=== PATIENT | male | born 1945 | race Caucasian/White ===

== ENCOUNTER 2021-05-18 14:45 | Inpatient (IN) | payer MEDICARE, OTHER ==
--- NOTE | 2021-05-18 16:59 | CR ---
[id number] RAD/RAD Chest PA or AP 1V EXAM: RAD Chest PA or AP 1V INDICATION: SHORT OF BREATH,HYPOXIA,COVID19. COMPARISON: None. DISCUSSION: Cardiomediastinal silhouette is normal in size and contour. Patchy pulmonary infiltrates bilaterally, right greater than left. No pneumothorax or pleural effusion. IMPRESSION: Patchy pulmonary infiltrates bilaterally, right greater than left. Findings are likely infectious/inflammatory in nature as can be seen with atypical/viral pneumonia. This is consistent with COVID pneumonia. Nathan Garzon DO 05/18/21 [id number] Thank you for allowing us to participate in the care of your patient.
[2021-05-18] MEDS ORDERED: REMDESIVIR 200 MG in Sodium Chloride 0.9% 250 ML IV ONE (17:00)
[2021-05-18 17:02] LABS: ANION GAP 17.6 mmol/L (5-15)
[2021-05-18] MEDS: dexAMETHasone 2 MG, dexAMETHasone 4 MG PO SCH ×2 (17:15)
[2021-05-18] MEDS ORDERED: Fluticasone Propionate Nasal Spray 9.9 ML BOTTLE NAS PRN (18:15)
[2021-05-18] MEDS ORDERED: Sodium Chloride 0.9% 1,000 ML IV SCH (18:15)
[2021-05-18] MEDS ORDERED: OLANZapine 10 MG Vial IM PRN (18:24)
[2021-05-18] MEDS ORDERED: Morphine 2 MG/ML SYRINGE IVPUSH PRN (18:24)
[2021-05-18] MEDS ORDERED: Non-Formulary Medication 1 Each (Metoprolol Tartrate 100 MG Tablet) PO SCH (20:00)
[2021-05-18] MEDS: Sodium Chloride 0.9% 1,000 ML IV SCH (20:25)
[2021-05-18] MEDS: Acetaminophen 325 MG Tab PO PRN (21:26)
--- NOTE | 2021-05-18 23:55 | HP ---
An admission history and physical to the acute care floor at [facility]. CHIEF COMPLAINT: 1. Weakness. 2. Fatigue. HISTORY OF PRESENT ILLNESS: A 76-year-old male patient, who was seen earlier today at the [facility] for the above chief complaint. The patient had been seen by me in the clinic on 05/13/2021 for body aches and cough. The patient did test positive for COVID-19. The patient was started on prednisone. Thorough discussion was held with the patient regarding his symptoms and when to present to the emergency room if his symptoms progressively got worse. The patient stated today in the clinic that he continues to have fevers, body aches are worse, feeling very fatigued and lethargic. The patient states he has had no appetite and has not been drinking very well. The patient states he has had on and off headache. He feels dizzy, but no lightheadedness. The patient denies any productive cough. No chest pain or palpitations. No leg swelling. The patient denies any abdominal pain. No nausea, vomiting, or diarrhea. The patient denies any eye or ear symptoms. No sore throat. No nasal congestion. The patient denies any sinus pressure/pain. Close family members have been sick with similar symptoms. Decision was made for the patient to be admitted to the acute care floor at [facility]. The patient was admitted today. PAST MEDICAL HISTORY: 1. Allergic rhinitis. 2. Gout. 3. Mixed hyperlipidemia. 4. Nose fracture. 5. Essential hypertension. 6. Chronic kidney disease, stage III, GFR 30 to 59. 7. Atrial fibrillation. 8. Impaired fasting glucose. 9. Obesity with BMI 30 to 39.9. PAST SURGICAL HISTORY: Nasal fracture surgery in 1991. FAMILY HISTORY: Noncontributory. SOCIAL HISTORY: Occasional alcohol use. The patient is not sexually active. The patient does not use any illegal drugs. The patient is a former smoker; the patient quit on 09/13/1997. The patient does not vape. The patient is currently . The patient has 2 children. MEDICATIONS: 1. Allopurinol 300 mg 1 tablet p.o. daily. 2. Fenofibrate 160 mg 1 tablet p.o. daily. 3. Hydrochlorothiazide 50 mg 1 tablet p.o. daily. 4. Losartan 100 mg 1 tablet p.o. daily. 5. Multivitamin 1 tablet p.o. daily. 6. Apixaban 5 mg 1 tablet p.o. twice daily. 7. Metoprolol tartrate 100 mg 1 tablet p.o. twice daily. 8. Aspirin 81 mg 1 tablet p.o. daily. 9. Flonase 50 mcg/actuation 1 spray to each nostril twice daily as needed. CODE STATUS: Code 2. LABORATORY STUDIES: 1. CBC: White blood cell count 11.5, hemoglobin 14.8, hematocrit 41.4, platelets 201,000. 2. Sedimentation rate 71. 3. CMP: Sodium 132, potassium 3.6, chloride 93, CO2 of 25, anion gap 17.6, BUN 96, creatinine 3.3, GFR 18, glucose 147, lactic acid 2.2, calcium 9.8, AST 47, ALT 27, alkaline phosphatase 47, total protein 7.6. 4. Procalcitonin 0.38. 5. Ferritin 4258. 6. Lactic acid 2.2. 7. LDH 459. 8. C-reactive protein 24.6. REVIEW OF SYSTEMS: See HPI. PHYSICAL EXAMINATION: Vital Signs: Temperature 99.1, blood pressure 90/56, oxygen saturation 92% on 3 L, respiratory rate 20, height 6 feet 1 inch, weight 277 pounds, pulse 111. Skin: Intact, warm, and dry. Respiratory: Lungs are decreased throughout with scattered rhonchi bibasilar, no wheezing. Cardiovascular: Tachycardic, irregularly irregular rhythm. Abdomen: Soft, nontender. Bowel sounds are hypoactive x4. Extremities: No edema. Neurological: The patient is alert. The patient is oriented to person, place, and time. No focal neurological deficit at this time. The patient is cooperative. ASSESSMENT: 1. Sepsis secondary to COVID-19 pneumonia as evidenced by leukocytosis, lactic acidosis, tachycardia. 2. COVID-19 pneumonia. 3. Dehydration. 4. Acute renal failure. 5. Respiratory failure secondary to hypoxia from COVID-19. 6. Atrial fibrillation. 7. Essential hypertension. 8. Mixed hyperlipidemia. 9. Chronic kidney disease, stage III, GFR 30 to 59. 10.Impaired fasting glucose. 11.Gout. PLAN: A 76-year-old male patient is admitted to the acute care floor at [facility] for the above diagnoses. The patient is requiring oxygen; however, we will hold off on remdesivir given the patient's GFR. The patient will be started on Lovenox. We will hold home medications and antihypertensives until blood pressure has stabilized. Oxygen to keep saturations greater than 90%. The patient will be started on normal saline 100 mL an hour for kidney hydration. Even though the patient does have COVID-19. The patient is a code 2. Lovenox b.i.d. The patient does wish to transfer to a higher level of care should the need arise. We will recheck laboratory work tomorrow morning. Consult PT/OT respectively. Case Management for discharge planning. The patient is in guarded condition. This patient was seen and examined by me as an [facility] provider. TB: 05/18/2021 19:04:46 MODL: 05/18/2021 23:49:41 /[id number] MTDD
[2021-05-19] MEDS: Sodium Chloride 0.9% 1,000 ML IV SCH ×2 (06:10→15:58)
[2021-05-19 07:41] LABS: ANION GAP 16.4 mmol/L (5-15)
[2021-05-19] MEDS ORDERED: Multivitamins with Iron/Calcium/Folic Acid/Minerals Tab PO SCH (08:00)
[2021-05-19] MEDS ORDERED: Non-Formulary Medication 1 Each (Fenofibrate [Fenofibrate] 160 MG Tablet) PO SCH (08:00)
[2021-05-19] MEDS ORDERED: Allopurinol 300 MG Tab PO SCH (08:00)
[2021-05-19] MEDS: dexAMETHasone 2 MG, dexAMETHasone 4 MG PO SCH ×2 (09:15)
--- NOTE | 2021-05-19 11:00 | PN ---
Progress Note for GUILLERMO JOYCE Date: 05/19/2021 Room #: VM211 CHIEF COMPLAINT: 1. Weakness. 2. Fatigue. SUBJECTIVE: Hospital day #2 for a 76-year-old male patient who was admitted to the acute care floor at [facility] yesterday for COVID pneumonia, acute respiratory failure with hypoxia, dehydration, acute renal failure. The patient states today that he is feeling better. The patient did have bouts of confusion last evening, but that has cleared. The patient states he does not feel as weak. He still requires oxygen to keep his saturations above 90%. The patient was given 1 dose of remdesivir yesterday, however, this was discontinued due to elevated creatinine. The patient currently denies any headaches, dizziness, or lightheadedness. The patient states he feels short of breath. He has a dry cough. No chest pain or palpitations. No leg swelling. No skin concerns. Patient has had on and off fevers overnight. No chills. No issues with urination or bowel movements. The patient states he is trying to drink water as able. PHYSICAL EXAMINATION: Vital Signs: Temperature 98.1, pulse 101, blood pressure 154/75, respiratory rate 20, oxygen saturation 92% on 4 L. Skin: Intact, warm, and dry. Respiratory: Lungs are decreased throughout with scattered rhonchi bibasilar. Cardiovascular: Tachycardic rate, regular rhythm, no murmur. Abdomen: Soft, nontender. Bowel sounds are hypoactive x4. Extremities: No edema. Neurological: Patient is alert. No new focal neurological deficits. LABORATORY STUDIES: 1. CBC: White blood cell count 11.3, hemoglobin 14.2, hematocrit 40.0, platelets 199,000. 2. CMP: Sodium 134, potassium 3.4, chloride 95, CO2 of 26, anion gap 16.4, BUN 81, creatinine 2.4, GFR 26, glucose 151, calcium 9.7, AST 45, ALT 25, alkaline phosphatase 46, total protein 7.1, albumin 2.6. 3. Lactic acid 1.9. ASSESSMENT: 1. Viral sepsis secondary to COVID-19 pneumonia as evidenced by leukocytosis, lactic acidosis, tachycardia. 2. COVID-19 pneumonia. 3. Dehydration. 4. Acute renal failure. 5. Respiratory failure secondary to hypoxia from COVID-19. 6. Atrial fibrillation. 7. Essential hypertension. 8. Mixed hyperlipidemia. 9. Chronic kidney disease, stage 3, GFR 30 to 59. 10.Impaired fasting glucose. 11.Gout. PLAN: Hospital day #2 on a 76-year-old male patient who was admitted to the acute care floor at [facility] for the above diagnoses. Continue on oxygen to keep saturations greater than 90%. May consider restarting remdesivir today as the patient's BUN and creatinine are improving. Continue all other acute cares the same. We will recheck laboratory work tomorrow. The patient is a code 2. Continue with IV fluids to help normalize dehydration and creatinine. Encouraged patient to ambulate in the room. Continue with IS. This patient was seen and examined by me as an [facility] provider. TB: 05/19/2021 08:07:09 MODL: 05/19/2021 10:53:05 /[id number] MTDD
[2021-05-19] MEDS ORDERED: REMDESIVIR 100 MG in Sodium Chloride 0.9% 100 ML IV SCH ×2 (12:00→16:00)
[2021-05-19] MEDS: Enoxaparin 30 MG/0.3 ML Syringe SUBCUT SCH (12:13)
[2021-05-19] MEDS ORDERED: Sodium Chloride 0.9% 100 ML ONE (15:54)
[2021-05-19] MEDS: Acetaminophen 325 MG Tab PO PRN (20:21)
[2021-05-20] MEDS: Sodium Chloride 0.9% 1,000 ML IV SCH ×3 (02:18→22:59)
[2021-05-20 07:29] LABS: ANION GAP 15.4 mmol/L (5-15)
[2021-05-20] MEDS: dexAMETHasone 2 MG, dexAMETHasone 4 MG PO SCH ×2 (08:48)
[2021-05-20] MEDS: Enoxaparin 30 MG/0.3 ML Syringe SUBCUT SCH (08:49)
[2021-05-20] MEDS: REMDESIVIR 100 MG in Sodium Chloride 0.9% 100 ML IV SCH (16:16)
--- NOTE | 2021-05-21 02:07 | PN ---
Progress Note for GUILLERMO JOYCE Date: 05/20/2021 Room #: [facility] CHIEF COMPLAINT: 1. Weakness. 2. Fatigue. SUBJECTIVE: Hospital day #3 on a 76-year-old male patient who was admitted to the acute care floor at [facility] 2 days ago for COVID pneumonia, acute respiratory failure with hypoxia, dehydration, acute renal failure. The patient states he continues to feel better. He is requiring oxygen to keep his saturations above 90%. The patient is currently on remdesivir and Decadron. The patient has continued on gentle hydration due to the renal failure. The patient denies any headaches, dizziness, or lightheadedness. The patient had confusion on admission, but this has cleared. The patient states he feels short of breath especially with activity. He has a dry nonproductive cough. The patient denies any chest pain or palpitations. No leg swelling. The patient denies any abdominal pain. No nausea, vomiting, or diarrhea. No skin complaints. PHYSICAL EXAMINATION: Vital Signs: Temperature 98.8, pulse 102, blood pressure 107/64, respiratory rate 28, and oxygen saturation 92% on 5 L. Skin: Intact, warm, and dry. Respiratory: Bibasilar crackles, otherwise decreased throughout. Cardiovascular: Tachycardic, regular rhythm, no murmurs. Abdomen: Soft, nontender. Bowel sounds are hypoactive x4. Extremities: No edema. Neurological: The patient is alert and oriented x3. No acute distress. No focal neurological deficits. LABORATORY STUDIES: 1. CBC: White blood cell count 11.3, hemoglobin 13.7, hematocrit 39.1, platelets 248,000. 2. CMP: Sodium 138, potassium 3.4, chloride 100, CO2 of 26, anion gap 15.4, BUN 58, creatinine 1.6, GFR 42, glucose 145, calcium 8.6, AST 45, ALT 28, alkaline phosphatase 48, total protein 6.8. ASSESSMENT: 1. Viral sepsis secondary to COVID-19 pneumonia as evidenced by leukocytosis, lactic acidosis, tachycardia. 2. COVID-19 pneumonia. 3. Dehydration. 4. Acute renal failure secondary to dehydration. 5. Acute respiratory failure secondary to hypoxia from COVID-19. 6. Atrial fibrillation. 7. Essential hypertension. 8. Mixed hyperlipidemia. 9. Chronic kidney disease, stage 3, GFR 30 to 59. 10.Impaired fasting glucose. 11.Gout. PLAN: Hospital day #3 on a 76-year-old male patient who was admitted to the acute care floor at [facility] with the above diagnoses. Continue on remdesivir IV. Continue dexamethasone p.o. daily. No other changes of medications at this time. Recheck laboratory work tomorrow morning. We will continue IV fluids for 1 more day and recheck creatinine tomorrow. If the creatinine continues to improve, we will discontinue IV fluids as long as the patient is taking good p.o. fluid. The patient is a code 2. The patient does not wish to transfer to a higher level of care should the need arise. Recheck laboratory work tomorrow morning. This patient was seen and examined by me as an [facility] provider. TB: 05/20/2021 19:42:24 MODL: 05/21/2021 02:01:11 /[id number]
[2021-05-21 07:41] LABS: ANION GAP 14.9 mmol/L (5-15)
[2021-05-21] MEDS: Enoxaparin 30 MG/0.3 ML Syringe SUBCUT SCH (09:04)
[2021-05-21] MEDS: dexAMETHasone 2 MG, dexAMETHasone 4 MG PO SCH ×2 (09:05)
[2021-05-21] MEDS: Losartan 50 MG Tab PO SCH (09:13)
[2021-05-21] MEDS: Multivitamins with Iron/Calcium/Folic Acid/Minerals Tab PO SCH (09:13)
[2021-05-21] MEDS: Metoprolol Succinate 50 MG Tab.ER PO SCH (09:14)
[2021-05-21] MEDS: Furosemide 20 MG Tab PO SCH (09:14)
--- NOTE | 2021-05-21 09:46 | PN ---
Progress Note for GUILLERMO JOYCE Date: 05/21/2021 Room #: [facility] CHIEF COMPLAINT: 1. Weakness. 2. Fatigue. SUBJECTIVE: Hospital day #4 on a 76-year-old male patient who was admitted to the acute care floor at [facility] for COVID-19 pneumonia, acute respiratory failure with hypoxia, dehydration, acute renal failure. The patient has continued with significant hypoxia requiring 10 L of oxygen since yesterday afternoon. He continues to have a dry cough. No pain. The patient has not had any headaches, dizziness, or lightheadedness. The patient is feeling very weak and lethargic. The patient complains of shortness of breath. No chest pain or palpitations. No leg swelling. No skin concerns. No abdominal pain. No nausea, vomiting, or diarrhea. OBJECTIVE: Vital Signs: Temperature 97.4, pulse 101, blood pressure 137/85, respiratory rate 20, oxygen saturation 91% on 10 L. Skin: Intact, warm and dry. Respiratory: Bibasilar crackles, otherwise decreased throughout. Cardiovascular: Tachycardic, irregular rhythm, no murmur. Abdomen: Bowel sounds are hypoactive x4, soft, nontender. Extremities: No edema. Neurological: The patient is alert. The patient is oriented to self and place, but disoriented to time. No new focal neurological deficits. LABORATORY STUDIES: 1. CBC: White blood cell count 10.7, hemoglobin 13.6, hematocrit 39.3, platelets 261,000. 2. CMP: Sodium 143, potassium 3.9, chloride 106, CO2 of 27, anion gap 14.9, BUN 48, creatinine 1.5, GFR 45, glucose 130, calcium 9.8, AST 45, ALT 27, alkaline phosphatase 49, total protein 6.6. ASSESSMENT: 1. Viral sepsis secondary to COVID-19 pneumonia as evidenced by leukocytosis, lactic acidosis, tachycardia. 2. COVID-19 pneumonia. 3. Acute respiratory failure secondary to hypoxia from COVID-19. 4. Acute renal failure secondary to dehydration. 5. Atrial fibrillation. 6. Essential hypertension. 7. Hyperlipidemia. 8. Chronic kidney disease, stage 3, GFR 30 to 59. 9. Impaired fasting glucose. 10.Gout. PLAN: Hospital day #4 on a 76-year-old male patient who was admitted to the acute care floor at [facility] for the above diagnoses. We will discontinue IV fluids today. We will restart home medications for blood pressure control. Continue on oxygen to keep saturations greater than 90%. Recheck laboratory work tomorrow. Continue acute cares for now. Recheck chest x-ray today given increased oxygen demand. The patient is a code 2. The patient does not wish to transfer to a high level of care should the need arise. This patient was seen and examined by me as an [facility] provider. TB: 05/21/2021 09:19:46 MODL: 05/21/2021 09:43:30 /[id number] MTDD
[2021-05-21] MEDS: REMDESIVIR 100 MG in Sodium Chloride 0.9% 100 ML IV SCH (15:27)
--- NOTE | 2021-05-21 16:44 | CR ---
[id number] RAD/RAD Chest PA or AP 1V EXAM: RAD Chest PA or AP 1V INDICATION: SHORTNESS OF BREATH, HYPOXIA. COMPARISON: May 18, 2021. DISCUSSION: Increasing patchy pulmonary infiltrates bilaterally. No pneumothorax or pleural effusion IMPRESSION: Increasing patchy pulmonary infiltrates bilaterally. Nathan Garzon DO 05/21/21 1643 Thank you for allowing us to participate in the care of your patient.
[2021-05-21] MEDS ORDERED: Miconazole 2% Top Powder 45 GM Container TOP PRN (19:11)
[2021-05-22] MEDS: Metoprolol Succinate 50 MG Tab.ER PO SCH (08:01)
[2021-05-22] MEDS: dexAMETHasone 2 MG, dexAMETHasone 4 MG PO SCH ×2 (08:02)
[2021-05-22] MEDS: Multivitamins with Iron/Calcium/Folic Acid/Minerals Tab PO SCH (08:02)
[2021-05-22] MEDS: Furosemide 20 MG Tab PO SCH (08:02)
[2021-05-22] MEDS: Losartan 50 MG Tab PO SCH (08:03)
[2021-05-22] MEDS: Enoxaparin 30 MG/0.3 ML Syringe SUBCUT SCH (08:04)
[2021-05-22 08:40] LABS: ANION GAP 14.8 mmol/L (5-15)
--- NOTE | 2021-05-22 11:05 | PN ---
Progress Note for GUILLERMO JOYCE Date: 05/22/2021 Room #: VM211 CHIEF COMPLAINT: 1. Weakness. 2. Fatigue. SUBJECTIVE: Hospital day #5 on a 76-year-old male patient, who was admitted to the acute care floor at [facility] for COVID-19 pneumonia, acute respiratory failure with hypoxia, dehydration, acute renal failure. The patient continues on 10 L of high-flow oxygen to keep his saturations greater than 90%. The patient states he is feeling okay. He is having intermittent shortness of breath with activity. Dry cough. He feels his weakness is getting better. The patient has not had any chest pain or palpitations. No leg swelling. The patient denies any headaches, dizziness, or lightheadedness. No fevers or chills. No issues with urination or bowel movements. The patient states he is trying to stay hydrated. OBJECTIVE: Vital Signs: Temperature 97.8, pulse 91, blood pressure 156/87, respiratory rate 20, oxygen saturation 93% on 10 L. Skin: Intact, warm, and dry. Respiratory: Bibasilar crackles, otherwise decreased throughout. Cardiovascular: Irregularly irregular rhythm. No murmur. Abdomen: Bowel sounds are hypoactive x4. Soft and nontender. Extremities: No edema. Neurological: The patient is alert. The patient is oriented to person and place, but disoriented to time. No new focal neurological deficits. LABORATORY STUDIES: 1. CBC: White blood cell count is 11.4, hemoglobin 13.9, hematocrit 40.4, platelets 296,000. 2. CMP: Sodium 142, potassium 3.8, chloride 104, CO2 of 27, anion gap 14.8, BUN 46, creatinine 1.4. GFR 49, glucose 120, calcium 8.5, AST 57, ALT 39, alkaline phosphatase 57, protein 6.8. 3. Lactic acid 2.0. 4. Ferritin 2217. 5. LDH 602. 6. C-reactive protein 7.2. ASSESSMENT: 1. Viral sepsis secondary to COVID-19 pneumonia as evidenced by leukocytosis, lactic acidosis, tachycardia. 2. COVID-19 pneumonia. 3. Acute respiratory failure secondary to hypoxia from COVID-19. 4. Acute renal failure secondary to dehydration. 5. Atrial fibrillation. 6. Essential hypertension. 7. Hyperlipidemia. 8. Chronic kidney disease stage 3. Glomerular filtration rate 30 to 59. 9. Impaired fasting glucose. 10.Gout. PLAN: Hospital day #5 on a 76-year-old male patient, who was admitted for the above diagnoses. Continue on the remdesivir. Continue on Decadron. Encourage p.o. hydration. We will watch creatinine. Recheck laboratory work tomorrow. Encourage the patient to get up out of bed as much as possible. The patient is a code 2. The patient does not wish to be transferred to a higher level of care. The patient was seen and examined by me as an [facility] provider. TB: 05/22/2021 10:24:04 MODL: 05/22/2021 10:58:17 /[id number]
[2021-05-22] MEDS: REMDESIVIR 100 MG in Sodium Chloride 0.9% 100 ML IV SCH (15:32)
--- NOTE | 2021-05-23 08:16 | PN ---
Progress Note for GUILLERMO JOYCE Date: 05/23/2021 Room #: VM211 CHIEF COMPLAINT: 1. Weakness. 2. Fatigue. SUBJECTIVE: Hospital day #6 on a 76-year-old male patient who was admitted to the acute care floor at [facility] for COVID-19 pneumonia, acute respiratory failure with hypoxia, dehydration, acute renal failure. The patient continues to require 10 L of high-flow oxygen to keep his saturations greater than 90%. The patient states today he is feeling in good health. He has shortness of breath with activity. Dry cough. No headaches, dizziness, or lightheadedness. The patient denies any chest pain or palpitations. No leg swelling. No abdominal pain. The patient states he is urinating okay. No problems with bowel movements. Appetite has been fair. The patient denies any nausea, vomiting, or diarrhea. No skin concerns. OBJECTIVE: Vital Signs: Temperature 97.4, pulse 88, blood pressure 166/84, respiratory rate 24, oxygen 95% on 10 L. Weight 262. Skin: Intact, warm, and dry. Respiratory: Bibasilar crackles, otherwise decreased throughout. Cardiovascular: Irregularly irregular rhythm. No murmur. Abdomen: Bowel sounds hypoactive x4. Soft and nontender. Extremities: No edema. Neurological: The patient is alert. The patient is oriented to person and place, but disoriented to time. No new focal neurological deficits. LABORATORY STUDIES: 1. CBC: White blood cell count 10.9, hemoglobin 13.3, hematocrit 38.9, platelets 255,000. 2. CMP: Sodium 140, potassium 4.0, chloride 105, CO2 24, anion gap 15.0, BUN 39, creatinine 1.3, GFR 54, glucose 109, calcium 8.6, AST 53, ALT 40, alkaline phosphatase 60, total protein 6.4. ASSESSMENT: 1. Viral sepsis secondary to COVID pneumonia as evidenced by leukocytosis, lactic acidosis, tachycardia. 2. COVID-19 pneumonia. 3. Acute respiratory failure secondary to hypoxia from COVID-19. 4. Acute renal failure secondary to dehydration. 5. Atrial fibrillation. 6. Essential hypertension. 7. Hyperlipidemia. 8. Chronic kidney disease stage 3. Glomerular filtration rate 30 to 59. 9. Impaired fasting glucose. 10.Gout. PLAN: Hospital day #6 on a 76-year-old male patient admitted to the acute care floor with the above diagnoses. Continue on remdesivir and Decadron. Continue p.o. hydration. BUN and creatinine are improving nicely. Recheck laboratory work tomorrow. The patient will stay on acute cares as long as he is on the oxygen. If we can get the oxygen less than 5, the patient would be a candidate for home monitoring. The patient is a code 2. This patient was seen and examined by me as an [facility] provider. TB: 05/23/2021 07:49:32 MODL: 05/23/2021 08:11:32 /[id number]
[2021-05-23] MEDS: Enoxaparin 30 MG/0.3 ML Syringe SUBCUT SCH (08:56)
[2021-05-23] MEDS: Metoprolol Succinate 50 MG Tab.ER PO SCH (08:57)
[2021-05-23] MEDS: Losartan 50 MG Tab PO SCH (08:57)
[2021-05-23] MEDS: dexAMETHasone 2 MG, dexAMETHasone 4 MG PO SCH ×2 (08:58)
[2021-05-23] MEDS: Multivitamins with Iron/Calcium/Folic Acid/Minerals Tab PO SCH (08:58)
[2021-05-23] MEDS: Furosemide 20 MG Tab PO SCH (08:58)
[2021-05-24 07:35] LABS: ANION GAP 15.3 mmol/L (5-15)
[2021-05-24] MEDS: dexAMETHasone 2 MG, dexAMETHasone 4 MG PO SCH ×2 (09:01)
[2021-05-24] MEDS: Enoxaparin 30 MG/0.3 ML Syringe SUBCUT SCH (09:01)
[2021-05-24] MEDS: Metoprolol Succinate 50 MG Tab.ER PO SCH (09:02)
[2021-05-24] MEDS: Multivitamins with Iron/Calcium/Folic Acid/Minerals Tab PO SCH (09:02)
[2021-05-24] MEDS: Losartan 50 MG Tab PO SCH (09:02)
[2021-05-24] MEDS: Furosemide 20 MG Tab PO SCH (09:02)
[2021-05-25 07:16] LABS: CHLORIDE,CL 102 mmol/L (98-107); SODIUM,NA 136 mmol/L (136-145)
[2021-05-25 07:18] LABS: ANION GAP 14.5 mmol/L (5-15)
[2021-05-25] MEDS: Enoxaparin 40 MG/0.4 ML Syringe SUBCUT SCH (08:44)
[2021-05-25] MEDS: dexAMETHasone 2 MG, dexAMETHasone 4 MG PO SCH ×2 (08:45)
[2021-05-25] MEDS: Losartan 50 MG Tab PO SCH (08:45)
[2021-05-25] MEDS: Multivitamins with Iron/Calcium/Folic Acid/Minerals Tab PO SCH (08:45)
[2021-05-25] MEDS: Metoprolol Succinate 50 MG Tab.ER PO SCH (08:46)
[2021-05-25] MEDS: Furosemide 20 MG Tab PO SCH (08:47)
--- NOTE | 2021-05-25 08:48 | CR ---
[id number] RAD/RAD Chest PA or AP 1V EXAM: SINGLE VIEW CHEST. INDICATION: HYPOXIA COVID COMPARISON: CORRELATION IS MADE WITH MAY 21, 2021 FINDINGS: A bilateral interstitial pattern is seen The cardiomediastinal contour is enlarged but stable IMPRESSION: BILATERAL INTERSTITIAL PNEUMONIA WORSENING SINCE LAST EXAM Raphael Christopher MD 05/25/21 0846 Thank you for allowing us to participate in the care of your patient.
[2021-05-25] MEDS: Cefepime 2 GM Vial IVPUSH SCH ×2 (13:31→20:16)
[2021-05-25] MEDS: VANCOmycin 1.5 GM/300 ML 1.5 GM in Premix Bag 1 BAG IV SCH (14:58)
[2021-05-26] MEDS: VANCOmycin 1.5 GM/300 ML 1.5 GM in Premix Bag 1 BAG IV SCH ×3 (00:16→19:15)
[2021-05-26] MEDS ORDERED: OLANZapine 10 MG Vial IM ONE ×3 (00:26→12:45)
[2021-05-26] MEDS ORDERED: Haloperidol Lactate 5 MG/ML SDV IV PRN ×3 (00:26→12:33)
--- NOTE | 2021-05-26 01:07 | PN ---
Progress Note for GUILLERMO JOYCE Date: 05/24/2021 [facility]: 1. Weakness. 2. Fatigue. SUBJECTIVE: Hospital day #7 on a 76-year-old male patient, who was admitted to the acute care floor at [facility] for COVID pneumonia, respiratory failure with hypoxia, dehydration, acute renal failure. The patient continues to require high-flow oxygen to keep his saturations greater than 90%. The patient states he is feeling fine today. He gets short of breath with activity. No cough. The patient has desaturations with activity. No problems with appetite. No issues with urination or bowel movements. The patient has not had any headaches, dizziness, or lightheadedness. No chest pain or palpitations. No leg swelling. No skin issues. The patient has not had any fevers or chills. No nausea, vomiting, or diarrhea. OBJECTIVE: Vital Signs: Temperature 98, pulse 103, blood pressure 158/95, respiratory rate 20, oxygen saturation 94% on 10 L. Skin: Intact, warm, and dry. Respiratory: Continues with bibasilar crackles, but improved. Otherwise decreased throughout. Cardiovascular: Irregularly irregular rhythm, no murmur. Abdomen: Bowel sounds are hypoactive x4. Soft and nontender. Extremities: No edema. Neurological: The patient is alert. The patient is oriented to person, place, and time. No focal neurological deficits. LABORATORY STUDIES: 1. CBC: White blood cell count 12.6, hemoglobin 13.7, hematocrit 40.2, platelets 217,000. 2. CMP: Sodium 141, potassium 4.3, chloride 104, CO2 26, anion gap 15.3, BUN 33, creatinine 1.2, GFR 59, glucose 114, calcium 8.8, AST 39, ALT 33, alkaline phosphatase 65, total protein 6.7. ASSESSMENT: 1. Viral sepsis secondary to COVID pneumonia as evidenced by leukocytosis, lactic acidosis, and tachycardia. 2. COVID-19 pneumonia. 3. Acute respiratory failure secondary to hypoxia from COVID-19. 4. Acute renal failure secondary to dehydration. 5. Atrial fibrillation. 6. Essential hypertension. 7. Hyperlipidemia. 8. Chronic kidney disease, stage 3. Glomerular filtration rate 30 to 59. 9. Impaired fasting glucose. 10.Gout. PLAN: Hospital day #7 on a 76-year-old male patient admitted to the acute care floor at [facility] for the above diagnoses. We will continue to try and wean oxygen as able today. The patient stays acute care due to his need for oxygen. Otherwise, no other changes. Other vital signs have been fine. The patient has been afebrile. Acute renal failure is greatly improved. The patient would be a good candidate for home monitoring; however, his oxygen demands are currently too high for home monitoring. Recheck laboratory work tomorrow. The patient is a code 2. This patient was seen and examined by me as an [facility] provider. TB: 05/25/2021 08:12:16 MODL: 05/26/2021 01:00:30 /[id number]
[2021-05-26] MEDS: Sodium Chloride 0.9% 10 ML Syringe FLUSH PRN ×4 (02:59→16:53)
--- NOTE | 2021-05-26 03:24 | PN ---
Progress Note for GUILLERMO JOYCE Date: 05/25/2021 Room #: [facility] CHIEF COMPLAINT: 1. Weakness. 2. Fatigue. SUBJECTIVE: Hospital day #8 on a 76-year-old male patient, who was admitted to the acute care floor at [facility] for COVID-19 pneumonia, acute respiratory failure with hypoxia, dehydration, acute renal failure. The patient continues to be on high-flow oxygen to keep his saturations greater than 90%. Very difficult to wean this patient. We will recheck an x-ray today. The patient offers no specific concerns this morning. He would like to go home; however, oxygen demands are too great. The patient has not had any headaches, dizziness, or lightheadedness. The patient is short of breath with activity. No cough. The patient denies any chest pain or palpitations. No leg swelling. No abdominal complaints. No fevers or chills. No skin complaints. OBJECTIVE: Vital Signs: Weight 256.8 pounds, temperature 97.2, pulse 80, blood pressure 174/90, respiratory rate 20, oxygen saturation 94% on 9 L. Skin: Intact, warm, and dry. Respiratory: No crackles or wheezes. Otherwise decreased throughout. Cardiovascular: Irregularly irregular rhythm, no murmur. Abdomen: Bowel sounds are hypoactive x4. Soft and nontender. Extremities: No edema. Neurological: The patient is alert. The patient is oriented to person, place, and time. No new focal neurological deficits. LABORATORY STUDIES: 1. CBC: White blood cell count 12.4, hemoglobin 13.4, hematocrit 38.9, platelets 209,000. 2. CMP: Sodium 136, potassium 4.5, chloride 102, CO2 24, anion gap 14.5, BUN 36, creatinine 1.1, GFR greater than 60, glucose 122, calcium 8.8, AST 30, ALT 28, ALP 64, total protein 6.5. ASSESSMENT: 1. Viral sepsis secondary to COVID pneumonia as evidenced by leukocytosis, tachycardia, and lactic acidosis. 2. COVID-19 pneumonia. 3. Acute respiratory failure secondary to hypoxia from COVID-19. 4. Acute renal failure secondary to dehydration. 5. Atrial fibrillation. 6. Essential hypertension. 7. Hyperlipidemia. 8. Chronic kidney disease, stage 3, glomerular filtration rate 30 to 59. 9. Impaired fasting glucose. 10.Gout. PLAN: Hospital day #8 on a 76-year-old male patient, who was admitted to the acute care floor at [facility] for the above diagnoses. The patient continues on acute cares due to his oxygen demands. The patient continues on high-flow oxygen to keep his saturation greater than 90%. Otherwise, the patient is doing well. We will recheck an x-ray today. We will discharge the patient as soon as his oxygen demands get better. Recheck laboratory work tomorrow. The patient is a code 2. The patient would be a candidate for home monitoring once he is on 5 L or less. This patient was seen and examined by me as an [facility] provider. TB: 05/25/2021 08:16:54 MODL: 05/26/2021 03:17:08 /[id number]
[2021-05-26] MEDS: Cefepime 2 GM Vial IVPUSH SCH ×3 (04:58→19:48)
[2021-05-26 07:18] LABS: ANION GAP 14.8 mmol/L (5-15)
[2021-05-26] MEDS ORDERED: LORazepam 2 MG/ML SDV IVPUSH PRN (09:03)
[2021-05-26] MEDS ORDERED: Morphine 2 MG/ML SYRINGE IV PRN (09:03)
[2021-05-26] MEDS: Enoxaparin 40 MG/0.4 ML Syringe SUBCUT SCH (11:52)
[2021-05-26] MEDS ORDERED: OLANZapine 2.5 MG Tab PO PRN (12:33)
[2021-05-26] MEDS: LORazepam 2 MG/ML SDV IVPUSH PRN ×4 (13:45→21:58)
[2021-05-26] MEDS: Haloperidol Lactate 5 MG/ML SDV IV PRN (18:07)
[2021-05-26] MEDS ORDERED: Flumazenil 0.1 MG/ML 5 ML MDV IVPUSH PRN (19:10)
[2021-05-26] MEDS ORDERED: OLANZapine 10 MG Vial IM PRN ×2 (19:13→20:18)
[2021-05-26] MEDS: Metoprolol Succinate 50 MG Tab.ER PO SCH (19:14)
[2021-05-26] MEDS: dexAMETHasone 2 MG, dexAMETHasone 4 MG PO SCH ×2 (19:14)
[2021-05-26] MEDS: Furosemide 20 MG Tab PO SCH (19:14)
[2021-05-26] MEDS: Losartan 50 MG Tab PO SCH (19:14)
[2021-05-26] MEDS: Multivitamins with Iron/Calcium/Folic Acid/Minerals Tab PO SCH (19:14)
[2021-05-26] MEDS ORDERED: Dexamethasone 4 MG/ML SDV IVPUSH SCH (19:15)
--- NOTE | 2021-05-26 20:31 | PCM.SN.2 ---
- Free Text/Narrative Note: Called and spoke with Dr. José Miguel Lema and Dr. Amy Ludwig, [facility]. Patient most likely has ARDS. Continue with O2 to keep sats >=88%. Continue Decadron for 2 more days then stop; psychosis could be from Decadron. Also possible is a cytokine storm given length of COVID symptoms. Supportive care at this point. Needs to be prone at least 16 hours per day to use the healthy part of the lungs. Continue with abx treatment for possible secondary bacterial pneumonia at this point. Continue Lovenox. Recommendation is to NOT over sedate due to ARDS. Giving too much sedation with drive the respiratory status, which would not be appropriate and will make resp status worse. POC discussed with nursing staff and family all updated. Time Documentation
--- NOTE | 2021-05-27 00:07 | PN ---
Progress Note for GUILLERMO JOYCE Date: 05/26/2021 Room #: VM.203 CHIEF COMPLAINT: 1. Weakness. 2. Fatigue. SUBJECTIVE: Hospital day #9 on a 76-year-old male patient, who was admitted to the acute care floor at [facility] for COVID-19 pneumonia, acute respiratory failure with hypoxia, dehydration, acute renal failure. The patient continues to be on high-flow oxygen to keep his saturation greater than 90%. The patient has been very difficult to wean oxygen at this point. The patient had antibiotics adjusted yesterday. Repeat chest x-ray yesterday showed COVID pneumonia versus bacterial pneumonia; however, the patient has not had any fever. The patient offers no specific concerns this morning. The patient has not had any headaches, dizziness, or lightheadedness. No cough. The patient is short of breath with activity. No chest pain or palpitations. No leg swelling. No abdominal complaints. No skin concerns. The patient does not think he has had any fevers or chills. OBJECTIVE: Vital Signs: Temperature 96.9, pulse 75, blood pressure 169/95, respiratory rate 24, oxygen saturation 94% on 12 L. Skin: Intact, warm, and dry. Respiratory: Lungs are decreased throughout, otherwise clear. Cardiovascular: Regular rate and rhythm, no murmur. Abdomen: Soft, nontender. Bowel sounds are hypoactive x4. Extremities: No edema. Neurological: The patient is alert to self. Disoriented to place and time. No new focal neurological deficits. LABORATORY STUDIES: 1. CBC: White blood cell count 11.9, hemoglobin 12.9, hematocrit 38.4, platelets 189,000. 2. CMP: Sodium 138, potassium 4.8, chloride 105, CO2 23, anion gap 14.8, BUN 42, creatinine 1.4, GFR 49, glucose 110, calcium 8.7, AST 28, ALT 32, alkaline phosphatase 60, total protein 6.3. ASSESSMENT: 1. Viral sepsis secondary to COVID pneumonia as evidenced by leukocytosis, tachycardia, and lactic acidosis. 2. COVID-19 pneumonia. 3. Acute respiratory failure with hypoxia secondary to COVID-19. 4. Acute renal failure due to dehydration. 5. Atrial fibrillation. 6. Essential hypertension. 7. Hyperlipidemia. 8. Chronic kidney disease, stage 3, glomerular filtration rate 30 to 59. 9. Impaired fasting glucose. 10.Gout. PLAN: Hospital day #9 on a 76-year-old male patient, who was admitted to the acute care floor at [facility] for the above diagnoses. Continue on current antibiotics. We will add Haldol to medication list for agitation. The patient will remain on acute cares due to high demand of oxygen. Condition is guarded. Recheck laboratory work tomorrow. The patient is a code 2. This patient was seen and examined by me as an [facility] provider. TB: 05/26/2021 08:09:11 MODL: 05/26/2021 23:59:38 /[id number]
[2021-05-27] MEDS: VANCOmycin 1.5 GM/300 ML 1.5 GM in Premix Bag 1 BAG IV SCH (02:59)
[2021-05-27] MEDS: LORazepam 2 MG/ML SDV IVPUSH PRN ×4 (03:14→16:18)
[2021-05-27] MEDS: Cefepime 2 GM Vial IVPUSH SCH ×3 (04:28→20:01)
[2021-05-27] MEDS: Haloperidol Lactate 5 MG/ML SDV IV PRN (06:26)
[2021-05-27 07:06] LABS: ANION GAP 17.5 mmol/L (5-15)
[2021-05-27] MEDS ORDERED: dexAMETHasone 2 MG, dexAMETHasone 4 MG PO SCH ×2 (08:00)
[2021-05-27] MEDS: Multivitamins with Iron/Calcium/Folic Acid/Minerals Tab PO SCH (08:38)
[2021-05-27] MEDS: Metoprolol Succinate 50 MG Tab.ER PO SCH (08:38)
[2021-05-27] MEDS: Losartan 50 MG Tab PO SCH (08:39)
[2021-05-27] MEDS: Morphine 4 MG/ML Syringe IVPUSH PRN ×3 (08:46→21:36)
[2021-05-27] MEDS: Enoxaparin 40 MG/0.4 ML Syringe SUBCUT SCH (08:52)
[2021-05-27] MEDS: Furosemide 20 MG/2 ML VIAL IV SCH (09:04)
[2021-05-27] MEDS: Dexamethasone 4 MG/ML SDV IVPUSH SCH (09:04)
[2021-05-27] MEDS ORDERED: Iopamidol 755 Mg/ML 100 ML Bottle IVPUSH ONE (11:27)
--- NOTE | 2021-05-27 12:12 | CT ---
[id number] CT/CTA Chest EXAM: CT ANGIOGRAM CHEST INDICATION: SHORTNESS OF BREATH, HYPOXIA. COMPARISON: None. DISCUSSION: No large central or lobar pulmonary arterial filling defects to suggest acute pulmonary embolism. Evaluation of the segmental and subsegmental pulmonary arteries is limited secondary to respiratory motion artifact. Diffuse groundglass and consolidative densities seen throughout the lungs bilaterally. No pneumothorax or pleural effusion.The heart is enlarged. No mediastinal, hilar or axillary lymphadenopathy. Filling defect within the proximal descending aorta consistent with thrombus. No significant stenosis. The imaged upper abdomen and osseous structures are unremarkable. IMPRESSION: 1. No large central or lobar pulmonary embolism. Evaluation of the segmental and subsegmental pulmonary arteries is limited secondary to respiratory motion artifact. However, there are no definite filling defects identified. 2. Diffuse consolidative and groundglass density seen throughout the lungs bilaterally. Findings are consistent with severe atypical/viral pneumonia. This includes COVID pneumonia. Nathan Garzon DO 05/27/21 1211 Thank you for allowing us to participate in the care of your patient.
[2021-05-27] MEDS: Sodium Chloride 0.9% 1,000 ML IV SCH ×2 (13:15→23:10)
[2021-05-27 13:27] LABS: PCO2 ARTERIAL,POC 50 mmHg (35-48)
--- NOTE | 2021-05-27 15:16 | PCM.SN.2 ---
- Free Text/Narrative Note: 05/27/2021 12:30 Family conference held in patient's room. REBEKAH Varela present. Long discussed held with family regarding patient's current medical status. Discussed mortality, quality of life, and current treatments. Family assured everything is being done as able. Discussed with family this provider has been keeping in contact with [facility] regarding this patient. Will continue current treatments and supportive care. Patient's family changed code status to CPR only. Will keep family updated as able. Time Documentation
[2021-05-27] MEDS ORDERED: Haloperidol Lactate 5 MG/ML SDV IV PRN (15:30)
[2021-05-27] MEDS ORDERED: LORazepam 2 MG/ML SDV IVPUSH PRN (19:55)
[2021-05-27] MEDS ORDERED: Diltiazem 50 MG/10 ML SDV IVPUSH ONE (20:05)
--- NOTE | 2021-05-28 01:53 | PN ---
Progress Note for GUILLERMO JOYCE Date: 05/27/2021 Room #: VM.203 CHIEF COMPLAINT: 1. Weakness. 2. Fatigue. SUBJECTIVE: Hospital day #10 on a 76-year-old male patient, who was admitted to the acute care floor at [facility] for COVID-19 pneumonia, acute respiratory failure with hypoxia, dehydration, acute renal failure. The patient continues on high-flow oxygen to keep saturations greater than 88%. The patient has been very difficult to wean from oxygen. The patient is more obtunded today. CT scan of the chest today shows extensive COVID pneumonia. Continue with antibiotics. The patient is essentially nonverbal, possibly secondary to IV medications. Nursing staff offers no complaints or concerns. REVIEW OF SYSTEMS: Unable to obtain due to the patient's condition. OBJECTIVE: Vital Signs: Temperature 99, pulse 131, blood pressure 118/69, respiratory rate 38, oxygen saturation 92% on 6 L. Skin: Intact, warm and dry. Respiratory: Lungs are decreased, scattered rhonchi, end-expiratory wheezing. Cardiovascular: Regular rate and rhythm, no murmur. Abdomen: Soft, nontender. Bowel sounds are hypoactive x4. Extremities: No edema. Neurological: The patient is very lethargic and obtunded. LABORATORY STUDIES: 1. CBC: White blood cell count 12.5, hemoglobin 13.7, hematocrit 42.6, platelets are 195,000. 2. CMP: Sodium 140, potassium 5.5, chloride 107, CO2 27, anion gap 17.5, BUN 47, creatinine 1.5, GFR 45, glucose 176. AST 31, ALT 40, alkaline phosphatase 65. 3. C-reactive protein is 10.5. 4. Procalcitonin less than 0.05. 5. Ferritin 2386. 6. LDH 393. ASSESSMENT: 1. Viral sepsis secondary to COVID pneumonia as evidenced by leukocytosis, tachycardia, and lactic acidosis. 2. COVID-19 pneumonia. 3. Acute respiratory failure with hypoxia secondary to COVID-19. 4. Acute renal failure due to dehydration. 5. Atrial fibrillation. 6. Essential hypertension. 7. Hyperlipidemia. 8. Chronic kidney disease, stage 3. Glomerular filtration rate 30 to 59. 9. Impaired fasting glucose. 10.Gout. PLAN: Hospital day #10 on a 76-year-old male patient, who was admitted to the acute care floor at [facility] for the above diagnoses. A long family conference was held today. Family was all given an update on the patient's current status. The patient is in very guarded condition. Family would like the code status changed to CPR only. Continue with supportive cares without any changes today. Family was made aware of the patient's current condition. We will recheck laboratory work tomorrow. Restart IV fluids today. Continue all other medications the same. This patient was seen and examined by me as an [facility] provider. TB: 05/27/2021 15:26:27 MODL: 05/28/2021 01:46:21 /[id number]
[2021-05-28] MEDS: Cefepime 2 GM Vial IVPUSH SCH (04:18)
--- NOTE | 2021-05-28 04:20 | PCM.SN.2 ---
- Free Text/Narrative Note: 05/28/2021 3:11 Called by REBEKAH Melendrez informed patient's blood pressures was low and heart rate was high. Fluids increased. Labs ordered. Family notified to be with patient. Time Documentation
[2021-05-28 04:58] LABS: PCO2 ARTERIAL,POC 52 mmHg (35-48)
--- NOTE | 2021-05-28 06:06 | PCM.SN.2 ---
- Free Text/Narrative Note: 05/28/2021 05:28 Family conference held with 1 son, 1 daughter, daughter in law, and son in law. Patient status updated with family. Discussed at length, critical/serious condition of patient. No additional therapy/interventions warrant at this time. Family aware. Comfort cares offered, family continue to want CPR (no intubation, but drugs/chest compressions ok). Labs also reviewed with family. All questions answered. Will continue to monitor patient closely. Family currently at bedside. Time Documentation
[2021-05-28] MEDS ORDERED: Morphine 10 MG/ML SDV IVPUSH PRN (06:48)
[2021-05-28] MEDS: Sodium Chloride 0.9% 1,000 ML IV SCH (07:22)
--- NOTE | 2021-05-28 08:09 | PN ---
Progress Note for GUILLERMO JOYCE Date: 05/28/2021 Room #: [id number] CHIEF COMPLAINT: 1. Weakness. 2. Fatigue. SUBJECTIVE: Hospital day #11 on a 76-year-old male patient who was admitted to the acute care floor at [facility] on 05/18/2021 for COVID pneumonia, acute respiratory failure with hypoxia, dehydration, acute renal failure. The patient's condition is critical at this time. The patient is requiring high- flow oxygen; however, he is not maintaining his saturations due to worsening COVID pneumonia. The patient is also hypotensive with blood pressures in the 80s. The patient is not responsive. The patient is tachycardic. The patient does not respond. The patient did have a CT scan of the chest yesterday which showed extensive COPD and pneumonia. REVIEW OF SYSTEMS: Unable to obtain due to patient's condition. OBJECTIVE: Vital Signs: Pulse 164, blood pressure 80/32, respiratory rate 44, oxygen saturation 84% on high-flow. Skin: Diaphoretic, warm, intact. Respiratory: Lungs are decreased throughout. Cardiovascular: Tachycardic, irregular rhythm. No murmur. Abdomen: Soft, nontender. Bowel sounds are hypoactive x4. Neurological: The patient is obtunded. LABORATORY STUDIES: 1. CBC: White blood cell count 29.2, hemoglobin 13.5, hematocrit 42.8, platelets 203,000. 2. Blood gas; pH 7.25, pCO2 of 52, PO2 of 42, bicarb 22.8, O2 saturation 68.3. 3. BMP: Sodium 147, creatinine 6.0, chloride 113, CO2 is 22, anion gap 18, BUN 68, creatinine 3.3, GFR 18, glucose 145. 4. Lactic acid 3.5. 5. Ammonia 62. 6. CRP 15.3. ASSESSMENT: 1. Viral sepsis secondary to COVID-19. 2. COVID-19 pneumonia. 3. Acute respiratory failure with hypoxia secondary to COVID-19. 4. Acute renal failure. 5. Multisystem organ failure. 6. Atrial fibrillation. 7. Essential hypertension. 8. Hyperlipidemia. 9. Chronic kidney disease, stage 3, GFR 30 to 59. 10.Impaired fasting glucose. 11.Gout. PLAN: Hospital day #11 on a 76-year-old male patient was admitted to the acute care floor for the above diagnoses. Long discussion was held with the family this morning in regard to the critical condition of the patient. They wish to continue with CPR; however, comfort cares was discussed. Continue all treatments the same without any changes. At this point, all medically necessary treatments have been maximized according to family's wishes. We will continue to monitor the patient very closely. This patient was seen and examined by me as an [facility] provider. TB: 05/28/2021 06:46:03 MODL: 05/28/2021 07:27:06 /[id number]
[2021-05-28] MEDS: Dexamethasone 4 MG/ML SDV IVPUSH SCH (08:52)
[2021-05-28] MEDS: Furosemide 20 MG/2 ML VIAL IV SCH (08:53)
[2021-05-28] MEDS: Enoxaparin 40 MG/0.4 ML Syringe SUBCUT SCH (08:54)
--- NOTE | 2021-05-28 11:48 | PCM.DCSUM1 ---
Discharge Summary - Hospital Course HPI Initial Comments: 76 year old male patient had presented to [facility] on May 13, 2021 for fevers. Patient tested positive for COVID on the day. Symptoms had started the Sunday prior. Admission to the hospital was offered, but patient declined. Discussed with patient and family when to bring patient in if he gets worse. Patient presented to the [facility] again on Tuesday May 18, 2021. Patient was admitted to the hospital. Brief History: See admission H & P Diagnosis: Stroke: No Modified Ramakrishna Scale: No Symptoms at All Modified Millard Scale Score: 0 - Discharge Data Discharge Date: 05/28/21 Discharge Disposition: 20 Preliminary Cause of *Q: Multi System Organ Failure Condition: - Referral to Home Health Primary Care Physician: Adri Serrano NP - Discharge Diagnosis/Problem(s) (1) Acute respiratory failure with hypoxia SNOMED Code(s): 56305506, 025704062 ICD Code: J96.01 - ACUTE RESPIRATORY FAILURE WITH HYPOXIA Status: Acute Priority: High Current Visit: Yes Onset Date: ~05/18/21 (2) COVID-19 SNOMED Code(s): 525977832 ICD Code: U07.1 - COVID-19 Status: Acute Priority: High Current Visit: Yes Onset Date: ~05/13/21 (3) Acute renal failure SNOMED Code(s): 06511785 ICD Code: N17.9 - ACUTE KIDNEY FAILURE, UNSPECIFIED Status: Acute Priority: High Current Visit: Yes Onset Date: ~05/18/21 Qualifiers: Acute renal failure type: unspecified Qualified Code(s): N17.9 - Acute kidney failure, unspecified (4) Dehydration SNOMED Code(s): 17424323 ICD Code: E86.0 - DEHYDRATION Status: Acute Priority: High Current Visit: Yes Onset Date: ~05/18/21 (5) Atrial fibrillation SNOMED Code(s): 16896901 ICD Code: I48.91 - UNSPECIFIED ATRIAL FIBRILLATION Status: Chronic Priority: Low Current Visit: No Qualifiers: Atrial fibrillation type: persistent (not longstanding) Qualified Code(s): I48.19 - Other persistent atrial fibrillation; I48.1 - Persistent atrial fibrillation (6) Essential hypertension SNOMED Code(s): 99547828 ICD Code: I10 - ESSENTIAL (PRIMARY) HYPERTENSION Status: Chronic Priority: Low Current Visit: No (7) Mixed hyperlipidemia SNOMED Code(s): 611261775 ICD Code: E78.2 - MIXED HYPERLIPIDEMIA Status: Chronic Priority: Low Current Visit: No (8) Chronic kidney disease SNOMED Code(s): 492361854 ICD Code: N18.9 - CHRONIC KIDNEY DISEASE, UNSPECIFIED Status: Chronic Priority: Low Current Visit: No Qualifiers: Chronic kidney disease stage: stage 3 (moderate) Chronic kidney disease stage 3 subtype: stage 3b (GFR 30-44) Qualified Code(s): N18.32 - Chronic kidney disease, stage 3b (9) Impaired fasting glucose SNOMED Code(s): 350283000 ICD Code: R73.01 - IMPAIRED FASTING GLUCOSE Status: Chronic Priority: Low Current Visit: Yes (10) Gout SNOMED Code(s): 50823547 ICD Code: M10.9 - GOUT, UNSPECIFIED Status: Chronic Priority: Low Current Visit: Yes Qualifiers: Gout site: multiple sites Gout etiology: idiopathic Chronicity: chronic Presence of tophus: without tophus Qualified Code(s): M1A.09X0 - Idiopathic chronic gout, multiple sites, without tophus (tophi) - Patient Summary/Data Operative Procedure(s) Performed: None Consults: Consultations 05/18/21 15:54 Consult to Case Management/Production Machine Tender [CONS] Routine OT Evaluation and Treatment [CONS] Routine PT Evaluation and Treatment [CONS] Routine Labs Pending at D/C: None Recommended Follow-up Testing/Procedures: None Planned Operative Procedure(s) after DC: None Hospital Course: 76 year old patient was admitted to [facility] acute are floor on May 18, 2021 for Acute Respiratory Failure with hypoxia 2/2 to COVID 19; COVID 19 Pneumonia, ARF, clinical dehydration, and fevers. Patient was started on Remdesivir, Lovenox, and Decadron as the patient required O2 therapy. Patient tolerated medications without any issues. Patient did have some confusion on his second day of admission, but cleared and seem to be doing well over the next couple days. However, on afternoon, the patient became very combative, striking out at staff, pulling at tubes and lines, and trying to get out of bed. Patient was given Ativan and Morphine as his oxygen levels were critical due to his behaviors. Patient was able to tolerate oxygen therapy once calm. Patient continued on IV abx therapy for secondary bacterial lung infection. IVF had b een restarted as patient was not taking in any oral fluids. Patient condition continued to deteriorate over the next couple days. CT of chest did not show any PE but severe COVID 19 pneumonia. Oxygenating patient became more difficult. Several family conferences were held with patient status updates. On day of discharged, patient was very obtunded, did not response to verbal or painful stimuli. Oxygen therapy humidified high flow at 50L/min. Labs were obtained shows elevated WBC count, worsening ABG's. Family discussion held again with updates. Family still wanted CPR only with no intubation. Discussed with family the critical nature of the patient and disease process. - Discharge Plan *PRESCRIPTION DRUG MONITORING PROGRAM REVIEWED*: Not Applicable *COPY OF PRESCRIPTION DRUG MONITORING REPORT IN PATIENT ELOY: Not Applicable Home Medications: Home Meds Allopurinol [Zyloprim] 300 mg PO DAILY 05/18/21 [History] Apixaban [Eliquis] 5 mg PO BID 05/18/21 [History] Aspirin [Aspirin EC] 81 mg PO DAILY 05/18/21 [History] Fenofibrate 160 mg PO DAILY 05/18/21 [History] Fluticasone Propionate [Flonase Allergy Relief] 2 sprays NS BID PRN 05/18/21 [History] Losartan Potassium [Cozaar] 100 mg PO DAILY 05/18/21 [History] Metoprolol Tartrate [Lopressor] 100 mg PO BID 05/18/21 [History] Multivitamin with Minerals [Multiple Vitamin] 1 tab PO DAILY 05/18/21 [History] hydroCHLOROthiazide [Hydrochlorothiazide] 50 mg PO DAILY 05/18/21 [History] Oxygen Therapy Mode: High Flow Humidification Oxygen Flow Rate (L/min): 50 Maintain SpO2% greater than: 88 - Discharge Summary/Plan Comment DC Time >30 min.: Yes Total # of Minutes for Discharge Time: 37 Discharge Summary/Plan Comment: Patient seen and examined at 10:10. No response to verbal or painful stimuli. No spontaneous respirations on auscultation. No spontaneous heart beat on auscultation. Family at bedside. Patient pronounced at 10:10 am on May 28, 2021. - General Info Date of Service: 10/30/21 - Review of Systems Systems Review Comment: STONE due to patient's critical condition - Patient Data Vitals - Most Recent: Last Vital Signs Temp 99 F 05/28/21 02:52 Pulse 164 H 05/28/21 06:38 Resp 44 H 05/28/21 06:38 BP 80/32 L 05/28/21 06:38 Pulse Ox 84 L 05/28/21 06:38 Weight - Most Recent: 255 lb I&O - Last 24 hours: Intake & Output 05/27/21 05/28/21 05/28/21 22:59 06:59 14:59 Intake Total 0 0 Output Total 400 200 Balance -400 -200 0 Lab Results - Last 24 hrs: Laboratory Results - last 24 hr 05/27/21 05/27/21 05/27/21 Range/Units 07:05 13:10 13:24 WBC (4.0-10.0) x10^3/uL RBC (4.5-6.0) x10^6/uL Hgb (14.0-18.0) g/dL Hct (40.0-52.0) % MCV (78.0-93.0) fL MCH (26.0-32.0) pg MCHC (32.0-36.0) g/dL RDW Coeff of Pablo (10.0-15.0) % Plt Count (130-400) x10^3/uL Add Manual Diff Neutrophils % (Manual) (50-80) % Band Neutrophils % (0-6) % Lymphocytes % (Manual) (25-50) % Monocytes % (Manual) (2-11) % Metamyelocytes % (0) % Myelocytes % (0) % Immature Gran # (0.00-0.07) X10^3/Ul Absolute Neutrophils (1.8-7.7) x10^3/uL Lymphocytes # (Manual) (1.0-4.8) x10^3/uL Monocytes # (Manual) (0.0-0.8) x10^3/uL Platelet Estimate Macrocytosis POC ABG pH 7.25 L* (7.35-7.45) pH POC ABG pCO2 50 H (35-48) mmHg POC ABG pO2 71 L (83-108) mmHg POC ABG HCO3 22.1 (21-28) mmol/L POC ABG Total CO2 23.1 (22-29) mmol/L POC ABG O2 Sat 91.0 L (94-98) % POC ABG Base Excess -5 L ((-2)-3) mmol/L POC FiO2 60 POC Blood Gas Comment Sodium (136-145) mmol/L Potassium (3.5-5.1) mmol/L Chloride (98-107) mmol/L Carbon Dioxide (21-32) mmol/L Anion Gap (5-15) mmol/L BUN (7-18) mg/dL Creatinine (0.70-1.30) mg/dL Est Cr Clr Drug Dosing mL/min Estimated GFR (MDRD) Glucose (70-99) mg/dL Lactic Acid (0.4-2.0) mmol/L Calcium (8.5-10.1) mg/dL Ammonia (19-54) ug/dL C-Reactive Protein (<=0.9) mg/dL Vancomycin Trough 25.6 H* (10.0-20.0) ug/mL Random Vancomycin 22.4 H* (5.0-10.0) ug/mL 05/28/21 05/28/21 05/28/21 Range/Units 04:35 04:35 04:35 WBC 29.2 H* (4.0-10.0) x10^3/uL RBC 4.26 L (4.5-6.0) x10^6/uL Hgb 13.5 L (14.0-18.0) g/dL Hct 42.8 (40.0-52.0) % MCV 100.5 H D (78.0-93.0) fL MCH 31.7 (26.0-32.0) pg MCHC 31.5 L (32.0-36.0) g/dL RDW Coeff of Pablo 13.7 (10.0-15.0) % Plt Count 203 (130-400) x10^3/uL Add Manual Diff Yes Neutrophils % (Manual) 89 H (50-80) % Band Neutrophils % 4 (0-6) % Lymphocytes % (Manual) 1 L (25-50) % Monocytes % (Manual) 3 (2-11) % Metamyelocytes % 2 H (0) % Myelocytes % 1 H (0) % Immature Gran # 0.88 H (0.00-0.07) X10^3/Ul Absolute Neutrophils 27.2 H (1.8-7.7) x10^3/uL Lymphocytes # (Manual) 0.3 L (1.0-4.8) x10^3/uL Monocytes # (Manual) 0.9 H (0.0-0.8) x10^3/uL Platelet Estimate Adequate Macrocytosis 1+ slight H POC ABG pH (7.35-7.45) pH POC ABG pCO2 (35-48) mmHg POC ABG pO2 (83-108) mmHg POC ABG HCO3 (21-28) mmol/L POC ABG Total CO2 (22-29) mmol/L POC ABG O2 Sat (94-98) % POC ABG Base Excess ((-2)-3) mmol/L POC FiO2 POC Blood Gas Comment Sodium 147 H (136-145) mmol/L Potassium 6.0 H (3.5-5.1) mmol/L Chloride 113 H (98-107) mmol/L Carbon Dioxide 22 (21-32) mmol/L Anion Gap 18.0 H (5-15) mmol/L BUN 68 H (7-18) mg/dL Creatinine 3.3 H* D (0.70-1.30) mg/dL Est Cr Clr Drug Dosing 21.19 mL/min Estimated GFR (MDRD) 18 Glucose 145 H (70-99) mg/dL Lactic Acid 3.5 H* (0.4-2.0) mmol/L Calcium 8.7 (8.5-10.1) mg/dL Ammonia (19-54) ug/dL C-Reactive Protein 15.3 H (<=0.9) mg/dL Vancomycin Trough (10.0-20.0) ug/mL Random Vancomycin (5.0-10.0) ug/mL 05/28/21 05/28/21 05/28/21 Range/Units 04:35 04:53 07:43 WBC (4.0-10.0) x10^3/uL RBC (4.5-6.0) x10^6/uL Hgb (14.0-18.0) g/dL Hct (40.0-52.0) % MCV (78.0-93.0) fL MCH (26.0-32.0) pg MCHC (32.0-36.0) g/dL RDW Coeff of Pablo (10.0-15.0) % Plt Count (130-400) x10^3/uL Add Manual Diff Neutrophils % (Manual) (50-80) % Band Neutrophils % (0-6) % Lymphocytes % (Manual) (25-50) % Monocytes % (Manual) (2-11) % Metamyelocytes % (0) % Myelocytes % (0) % Immature Gran # (0.00-0.07) X10^3/Ul Absolute Neutrophils (1.8-7.7) x10^3/uL Lymphocytes # (Manual) (1.0-4.8) x10^3/uL Monocytes # (Manual) (0.0-0.8) x10^3/uL Platelet Estimate Macrocytosis POC ABG pH 7.25 L* (7.35-7.45) pH POC ABG pCO2 52 H (35-48) mmHg POC ABG pO2 42 L* (83-108) mmHg POC ABG HCO3 22.8 (21-28) mmol/L POC ABG Total CO2 23.8 (22-29) mmol/L POC ABG O2 Sat 68.3 L (94-98) % POC ABG Base Excess -5 L ((-2)-3) mmol/L POC FiO2 60 POC Blood Gas Comment Called critical res Sodium (136-145) mmol/L Potassium (3.5-5.1) mmol/L Chloride (98-107) mmol/L Carbon Dioxide (21-32) mmol/L Anion Gap (5-15) mmol/L BUN (7-18) mg/dL Creatinine (0.70-1.30) mg/dL Est Cr Clr Drug Dosing mL/min Estimated GFR (MDRD) Glucose (70-99) mg/dL Lactic Acid (0.4-2.0) mmol/L Calcium (8.5-10.1) mg/dL Ammonia 62 H (19-54) ug/dL C-Reactive Protein (<=0.9) mg/dL Vancomycin Trough 24.1 H (10.0-20.0) ug/mL Random Vancomycin (5.0-10.0) ug/mL LYDIA Results - Last 24 hrs: Microbiology 05/25/21 13:00 Aerobic Blood Culture - Preliminary Blood - Venous - Lab Draw NO GROWTH AFTER 2 DAYS Anaerobic Blood Culture - Preliminary NO GROWTH AFTER 2 DAYS 05/25/21 12:54 Aerobic Blood Culture - Preliminary Blood - Venous NO GROWTH AFTER 2 DAYS Anaerobic Blood Culture - Preliminary NO GROWTH AFTER 2 DAYS Med Orders - Current: Current Medications Acetaminophen (Acetaminophen 325 Mg Tab) 650 mg PO Q6H PRN PRN Reason: Pain Last Admin: 05/19/21 20:21 Dose: 650 mg Documented by: Cefepime HCl (Cefepime 2 Gm Vial) 2 gm IVPUSH Q8H [facility] Last Admin: 05/28/21 04:18 Dose: 2 gm Documented by: Dexamethasone (Dexamethasone 4 Mg/Ml Sdv) 6 mg IVPUSH DAILY [facility] Stop: 05/29/21 08:01 Last Admin: 05/28/21 08:52 Dose: 6 mg Documented by: Enoxaparin Sodium (Enoxaparin 40 Mg/0.4 Ml Syringe) 40 mg SUBCUT DAILY [facility] Last Admin: 05/28/21 08:54 Dose: 40 mg Documented by: Flumazenil (Flumazenil 0.1 Mg/Ml 5 Ml Mdv) 0.2 mg IVPUSH ASDIRECTED PRN PRN Reason: Respiratory Depression Furosemide (Furosemide 20 Mg/2 Ml Vial) 20 mg IV DAILY [facility] Last Admin: 05/28/21 08:53 Dose: 20 mg Documented by: Haloperidol Lactate (Haloperidol Lactate 5 Mg/Ml Sdv) 10 mg IV Q6H PRN PRN Reason: Agitation Last Admin: 05/27/21 18:57 Dose: 10 mg Documented by: Sodium Chloride (Normal Saline) 1,000 mls @ 100 mls/hr IV ASDIRECTED [facility] Last Admin: 05/28/21 07:22 Dose: 150 mls/hr Documented by: Lorazepam (Lorazepam 2 Mg/Ml Sdv) 2 mg IVPUSH Q2H PRN PRN Reason: Agitation Last Admin: 05/27/21 20:01 Dose: 2 mg Documented by: Morphine Sulfate (Morphine 10 Mg/Ml Sdv) 10 mg IVPUSH Q1H PRN PRN Reason: Shortness of Breath Olanzapine (Olanzapine 10 Mg Vial) 10 mg IM Q8H PRN PRN Reason: Agitation Sodium Chloride (Sodium Chloride 0.9% 10 Ml Syringe) 10 ml FLUSH ASDIRECTED PRN PRN Reason: IV Use Last Admin: 05/26/21 16:53 Dose: 10 ml Documented by: Vancomycin HCl (Pharmacy To Dose - Vancomycin) 1 dose .XX ASDIRECTED [facility] Discontinued Medications Allopurinol (Allopurinol 300 Mg Tab) 300 mg PO DAILY [facility] Dexamethasone 2 mg/ (Dexamethasone 4 mg) 6 mg PO DAILY [facility] Stop: 05/27/21 08:01 Last Admin: 05/26/21 19:14 Dose: Not Given Documented by: Dexamethasone (Dexamethasone 4 Mg/Ml Sdv) 10 mg IVPUSH DAILY [facility] Last Admin: 05/26/21 19:43 Dose: 10 mg Documented by: Dexamethasone 2 mg/ (Dexamethasone 4 mg) 6 mg PO DAILY [facility] Stop: 05/29/21 08:01 Diltiazem HCl (Diltiazem 50 Mg/10 Ml Sdv) 20 mg IVPUSH ONETIME ONE Stop: 05/27/21 20:06 Last Admin: 05/27/21 20:13 Dose: 20 mg Documented by: Enoxaparin Sodium (Enoxaparin 30 Mg/0.3 Ml Syringe) 30 mg SUBCUT DAILY [facility] Last Admin: 05/24/21 09:01 Dose: 30 mg Documented by: Fluticasone Propionate (Fluticasone Propionate Nasal [place] 9.9 Ml Bottle) 0 ml [place] BID PRN PRN Reason: Rhinitis Furosemide (Furosemide 20 Mg Tab) 20 mg PO DAILY [facility] Last Admin: 05/26/21 19:14 Dose: Not Given Documented by: Haloperidol Lactate (Haloperidol Lactate 5 Mg/Ml Sdv) 5 mg IV Q4H PRN PRN Reason: Agitation Last Admin: 05/26/21 02:53 Dose: 5 mg Documented by: Haloperidol Lactate (Haloperidol Lactate 5 Mg/Ml Sdv) 5 mg IV Q4H PRN PRN Reason: Agitation Haloperidol Lactate (Haloperidol Lactate 5 Mg/Ml Sdv) 5 mg IV Q1H PRN PRN Reason: Agitation Haloperidol Lactate (Haloperidol Lactate 5 Mg/Ml Sdv) 10 mg IV Q1H PRN PRN Reason: Agitation Last Admin: 05/27/21 06:26 Dose: 10 mg Documented by: Remdesivir 200 mg/ Sodium (Chloride) 250 mls @ 250 mls/hr IV ONETIME ONE Stop: 05/18/21 17:59 Last Admin: 05/18/21 18:14 Dose: 250 mls/hr Documented by: Remdesivir 100 mg/ Sodium (Chloride) 100 mls @ 100 mls/hr IV Q24H [facility] Stop: 05/22/21 12:59 Sodium Chloride (Normal Saline) 1,000 mls @ 50 mls/hr IV ASDIRECTED [facility] Sodium Chloride (Normal Saline) 1,000 mls @ 100 mls/hr IV ASDIRECTED [facility] Last Admin: 05/20/21 22:59 Dose: 100 mls/hr Documented by: Remdesivir 100 mg/ Sodium (Chloride) 100 mls @ 100 mls/hr IV Q24H [facility] Stop: 05/22/21 16:59 Last Admin: 05/19/21 16:06 Dose: 100 mls/hr Documented by: Sodium Chloride (Normal Saline) Confirm Administered Dose 100 mls @ as directed .ROUTE .STK-MED ONE Stop: 05/19/21 15:55 Last Admin: 05/19/21 16:07 Dose: Not Given Documented by: Remdesivir 100 mg/ Sodium (Chloride) 100 mls @ 100 mls/hr IV Q24H [facility] Stop: 05/22/21 16:59 Last Admin: 05/22/21 15:32 Dose: 100 mls/hr Documented by: Vancomycin HCl 1.5 gm/ Premix 300 mls @ 200 mls/hr IV BID@00,12 [facility] Last Admin: 05/26/21 19:15 Dose: Not Given Documented by: Vancomycin HCl 1.5 gm/ Premix 300 mls @ 200 mls/hr IV Q12H [facility] Last Admin: 05/27/21 02:59 Dose: 200 mls/hr Documented by: Iopamidol (Iopamidol 755 Mg/Ml 100 Ml Bottle) 100 ml IVPUSH ONETIME ONE Stop: 05/27/21 11:28 Last Admin: 05/27/21 10:05 Dose: 100 ml Documented by: Lorazepam (Lorazepam 2 Mg/Ml Sdv) 1 mg IVPUSH Q4H PRN PRN Reason: AGITATION Last Admin: 05/26/21 09:14 Dose: 1 mg Documented by: Lorazepam (Lorazepam 2 Mg/Ml Sdv) 1 mg IVPUSH Q2H PRN PRN Reason: AGITATION Last Admin: 05/26/21 18:40 Dose: 1 mg Documented by: Lorazepam (Lorazepam 2 Mg/Ml Sdv) 2 mg IVPUSH Q1H PRN PRN Reason: Anxiety Last Admin: 05/27/21 06:46 Dose: 2 mg Documented by: Lorazepam (Lorazepam 2 Mg/Ml Sdv) 1 mg IVPUSH Q4H PRN PRN Reason: Anxiety Last Admin: 05/27/21 16:18 Dose: 1 mg Documented by: Losartan Potassium (Losartan 50 Mg Tab) 100 mg PO DAILY [facility] Last Admin: 05/27/21 08:39 Dose: Not Given Documented by: Metoprolol Succinate (Metoprolol Succinate 50 Mg Tab.Er) 100 mg PO DAILY [facility] Last Admin: 05/23/21 08:57 Dose: 100 mg Documented by: Metoprolol Succinate (Metoprolol Succinate 50 Mg Tab.Er) 200 mg PO DAILY [facility] Last Admin: 05/27/21 08:38 Dose: Not Given Documented by: Miconazole (Miconazole 2% Top Powder 45 Gm Container) 0 gm TOP BID PRN PRN Reason: Rash Last Admin: 05/22/21 19:34 Dose: 1 applic Documented by: Morphine Sulfate (Morphine 2 Mg/Ml Syringe) 1 mg IVPUSH Q2H PRN PRN Reason: Pain Morphine Sulfate (Morphine 2 Mg/Ml Syringe) 2 mg IV Q2H PRN PRN Reason: PAIN Last Admin: 05/26/21 11:46 Dose: 2 mg Documented by: Morphine Sulfate (Morphine 4 Mg/Ml Syringe) 4 mg IVPUSH Q1H PRN PRN Reason: Pain Last Admin: 05/27/21 21:36 Dose: 4 mg Documented by: Multivitamins/Minerals (Multivitamins With Iron/Calcium/Folic Acid/Minerals Tab) 1 tab PO DAILY [facility] Multivitamins/Minerals (Multivitamins With Iron/Calcium/Folic Acid/Minerals Tab) 1 tab PO DAILY [facility] Last Admin: 05/27/21 08:38 Dose: Not Given Documented by: Non-Formulary Medication (Fenofibrate [Fenofibrate]) 160 mg PO DAILY [facility] Non-Formulary Medication (Hydrochlorothiazide [Hydrochlorothiazide]) 50 mg PO DAILY [facility] Non-Formulary Medication (Losartan Potassium [Cozaar]) 100 mg PO DAILY [facility] Non-Formulary Medication (Metoprolol Tartrate) 100 mg PO BID [facility] Olanzapine (Olanzapine 10 Mg Vial) 5 mg IM ONETIME PRN PRN Reason: Agitation Olanzapine (Olanzapine 10 Mg Vial) 5 mg IM ONETIME ONE Stop: 05/26/21 00:27 Last Admin: 05/26/21 00:37 Dose: 5 mg Documented by: Olanzapine (Olanzapine 2.5 Mg Tab) 10 mg PO Q6H PRN PRN Reason: Agitation Olanzapine (Olanzapine 10 Mg Vial) 10 mg IM ONETIME ONE Stop: 05/26/21 12:46 Last Admin: 05/26/21 12:57 Dose: 10 mg Documented by: Olanzapine (Olanzapine 10 Mg Vial) 10 mg IM Q2H PRN PRN Reason: Agitation - Exam Quality Assessment: Reports: Supplemental Oxygen, Urine Catheter, DVT Prophylaxis General: Reports: Obtunded HEENT: Reports: Other (Non-reactive) Lungs: Reports: Other (No spontaneous respiratory effort) Cardiovascular: Reports: Other (No spontaneous heart beat) Neurological: Reports: Other (No response to verbal or painful stimuli) *Q Meaningful Use (DIS) - VTE *Q VTE Mechanical Contraindications *Q: At Risk for Falls
== END 2021-05-28 10:10 | disposition expired | DRG 871 ==
LOC: VM.MS 14:45
PROVIDERS: ADMIT Nurse Practitioner Family; ATTEND Nurse Practitioner Family
PROC: 3E0333Z Introduction of Anti-inflammatory into Peripheral Vein, Percutaneous Approach (ICD-10-PCS; principal; 2021-05-18)
PROC: XW033E5 Introduction of Remdesivir Anti-infective into Peripheral Vein, Percutaneous Approach, New Technology Group 5 (ICD-10-PCS; principal; 2021-05-18)
PROC: 8E0ZXY6 Isolation (ICD-10-PCS; principal; 2021-05-18)
DX: A41.89 Other specified sepsis (principal); U07.1 COVID-19; J12.82 Pneumonia due to coronavirus disease 2019; J80 Acute respiratory distress syndrome; J15.9 Unspecified bacterial pneumonia; N17.9 Acute kidney failure, unspecified; I48.19 Other persistent atrial fibrillation; E87.2 Acidosis; E86.0 Dehydration; E78.2 Mixed hyperlipidemia; N18.32 Chronic kidney disease, stage 3b; R73.01 Impaired fasting glucose; M1A.09X0 Idiopathic chronic gout, multiple sites, without tophus (tophi); I12.9 Hypertensive chronic kidney disease with stage 1 through stage 4 chronic kidney disease, or unspecified chronic kidney disease; E66.9 Obesity, unspecified; F29 Unspecified psychosis not due to a substance or known physiological condition; Z79.82 Long term (current) use of aspirin; Z79.01 Long term (current) use of anticoagulants; Z79.899 Other long term (current) drug therapy; Z87.891 Personal history of nicotine dependence; Z68.33 Body mass index [BMI] 33.0-33.9, adult; Z99.81 Dependence on supplemental oxygen; Z87.81 Personal history of (healed) traumatic fracture
CPT/HCPCS: 36415; 36600; 51702; 71045; 71275; 80048; 80053; 80202; 81001; 82140; 82728; 82803; 83605; 83615; 84145; 85025; 85610; 85652; 86140; 86612; 86635; 86738; 87040; 87385; 87899; 94760; 97162-GP; 97165-GO; A9270-GY; J0692; J1100; J1630; J1650; J1940; J2060; J2270; J3370; J3490; J7030; J7050; J8540; Q9967